=== PATIENT | male | born 1970 | race Caucasian/White ===

== ENCOUNTER 2018-11-25 08:08 | Outpatient (RCR) | payer MEDICARE, MEDICAID, SELFPAY ==
[2018-11-25] MEDS: Normal Saline Flush 10 ML SYR IVP (08:10)
[2018-11-25 08:55] LABS: Abs Immature Grans 0.03 k/cumm (0.0-0.09); Absolute Basophil Count 0.03 k/cumm (0.0-0.2); Absolute Eosinophil Count 0.27 k/cumm (0.0-0.7); Absolute Lymphocyte Count 1.05 k/cumm (1.2-3.4); Absolute Monocyte Count 0.49 k/cumm (0.11-0.7); Absolute Neutrophil Count 5.33 k/cumm (1.2-6.7); Basophils % 0.4; Eosinophils % 3.8; HCT 44.6 % (40.0-50.0); HGB 15.6 g/dL (13.5-17.5); Immature Grans % 0.4; Lymphocytes % 14.6; Mean Corpuscular Hemoglobin 34.4 pg (27.0-33.0); Mean Corpuscular Volume 98.5 fL (80-95); Mean Platelet Volume 9.1 fL (8.0-11.0); Monocytes % 6.8; Platelet Count 166 x1000/uL (130-400); RBC 4.53 m/cumm (4.50-6.00); RBC Distribution Width 13.1 % (11.8-14.1)
[2018-11-25 09:07] LABS: ALT 21 U/L (12-78); AST 24 U/L (15-37); Albumin 3.8 g/dL (3.4-5.0); Alkaline Phosphatase 88 U/L (46-116); Anion Gap 5.4 mmol/L (3-11); BUN 10 mg/dL (7-18); Bilirubin, Total 0.5 mg/dL (0.2-1.0); CO2 31.6 mmol/L (21.0-32.0); Calcium 8.7 mg/dL (8.5-10.1); Chloride 100 mmol/L (98-107); Glucose 104 mg/dL (70-100); LDH 253 U/L (85-227); Sodium 137 mmol/L (136-145); Total Protein 7.1 g/dL (6.4-8.2)
[2018-11-26 11:55] LABS: IgA 57 mg/dL (85-499); IgG 671 mg/dL (610-1616); IgM 191 mg/dL (35-242)
== END 2018-11-30 23:59 | disposition home or self-care (01) ==
LOC: INF 08:08
PROVIDERS: PCP Family Medicine; Visit Provider Internal Medicine Hematology & Oncology
DX: C88.0 Waldenstrom macroglobulinemia (principal); Z45.2 Encounter for adjustment and management of vascular access device
CPT/HCPCS: 36591; 80053; 82784; 80180; 83615; 85025

== ENCOUNTER 2019-07-21 08:54 | Outpatient (REF) | payer MEDICARE, MEDICAID, SELFPAY ==
[2019-07-21 09:15] LABS: Abs Immature Grans 0.05 k/cumm (0.0-0.09); Absolute Basophil Count 0.04 k/cumm (0.0-0.2); Absolute Eosinophil Count 0.13 k/cumm (0.0-0.7); Absolute Lymphocyte Count 1.05 k/cumm (1.2-3.4); Absolute Monocyte Count 0.56 k/cumm (0.11-0.7); Absolute Neutrophil Count 4.57 k/cumm (1.2-6.7); Basophils % 0.6; HCT 46.7 % (40.0-50.0); HGB 15.4 g/dL (13.5-17.5); Immature Grans % 0.8; Lymphocytes % 16.4; Mean Corpuscular Volume 96.9 fL (80-95); Mean Platelet Volume 8.5 fL (8.0-11.0); Monocytes % 8.8; Neutrophils % 71.4; Platelet Count 255 x1000/uL (130-400); RBC 4.82 m/cumm (4.50-6.00); RBC Distribution Width 14.7 % (11.8-14.1)
[2019-07-21 09:26] LABS: ALT 38 U/L (12-78); AST 22 U/L (15-37); Alkaline Phosphatase 100 U/L (46-116); Anion Gap 7.9 mmol/L (3-11); BUN 10 mg/dL (7-18); Bilirubin, Total 0.4 mg/dL (0.2-1.0); CO2 28.1 mmol/L (21.0-32.0); CREATININE 0.74 mg/dL (0.70-1.30); Calcium 8.9 mg/dL (8.5-10.1); Chloride 103 mmol/L (98-107); Glucose 105 mg/dL (70-100); LDH 229 U/L (85-227); Potassium 4.5 mmol/L (3.5-5.1); Sodium 139 mmol/L (136-145); Total Protein 7.5 g/dL (6.4-8.2)
== END 2019-07-21 09:14 ==
LOC: LBN 08:54
PROVIDERS: PCP Family Medicine; Visit Provider Internal Medicine Hematology & Oncology
DX: C88.0 Waldenstrom macroglobulinemia (principal)
CPT/HCPCS: 80053; 83615; 85025

== ENCOUNTER 2021-01-10 09:00 | Outpatient (RCR) | payer MEDICARE, MEDICAID, SELFPAY ==
[2021-01-10] MEDS: Normal Saline Flush 10 ML SYR IVP (09:13)
[2021-01-10 09:24] LABS: Abs Immature Grans 0.14 10^3/uL (0.0-0.06); Absolute Basophil Count 0.06 10^3/uL (0.0-0.2); Absolute Eosinophil Count 0.41 10^3/uL (0.0-0.7); Absolute Lymphocyte Count 1.07 10^3/uL (1.2-3.4); Absolute Monocyte Count 0.87 10^3/uL (0.1-0.8); Absolute Neutrophil Count 3.74 10^3/uL (1.2-6.7); Eosinophils % 6.5; HGB 15.1 g/dL (13.5-17.5); Immature Grans % 2.2; MCH 31.2 pg (27.0-33.0); MCHC 32.8 % (32.0-36.0); MPV 8.6 fL (8.0-11.0); Monocytes % 13.8; Neutrophils % 59.5; Nucleated RBC 0 %; Platelet Count 193 10^3/uL (130-400); RBC 4.84 10^6/uL (4.36-5.78); RDW 13.7 % (11.8-14.1); RDW-SD 48.3 fL; WBC 6.29 10^3/uL (4.4-10.8)
[2021-01-10 09:38] LABS: ALT 24 U/L (16-63); AST 17 U/L (15-37); Albumin 3.6 g/dL (3.4-5.0); Alkaline Phosphatase 107 U/L (46-116); Anion Gap 8.4 mmol/L (3-11); BUN 11 mg/dL (7-18); Bilirubin, Total 0.3 mg/dL (0.2-1.0); CO2 27.6 mmol/L (21.0-32.0); CREATININE 0.8 mg/dL (0.70-1.30); Calcium 8.7 mg/dL (8.5-10.1); Chloride 104 mmol/L (98-107); Glucose 89 mg/dL (74-106); LDH 224 U/L (85-227); Potassium 4.6 mmol/L (3.5-5.1); Sodium 140 mmol/L (136-145); Total Protein 7.2 g/dL (6.4-8.2)
[2021-01-11 09:24] LABS: IgA 43 mg/dL (85-499); IgG 598 mg/dL (610-1,616); IgM 276 mg/dL (35-242)
== END 2021-01-28 23:59 | disposition home or self-care (01) ==
LOC: INF 09:00
PROVIDERS: PCP Family Medicine; Visit Provider Internal Medicine Hematology & Oncology
DX: C88.0 Waldenstrom macroglobulinemia (principal); Z45.2 Encounter for adjustment and management of vascular access device
CPT/HCPCS: 36591; 80053; 82784; 83615; 85025

== ENCOUNTER 2021-02-21 11:02 | Outpatient (REF) | payer MEDICARE, MEDICAID, SELFPAY ==
--- NOTE | 2021-02-21 10:25 | PAPNONF_PTH ---
PATIENT: Artis Singer JR LOC: [facility] U#:[id number] AGE/SX: 50/M ROOM: RE02/21/[address]: MARGARET Gonzalez : 1970 BED: DIS: 02/21/2021 SPEC #: [id number] RECD: 02/22/21 13:06 STATUS: JUAN DIEGO DOWELL #: [id number] LUIS ENRIQUE: 02/21/21 10:[address]: Ronny Cordova DEPT: [facility] Cyt[facility] RECD BY: Yesica Raya ENTERED: 02/22/21 13:06 SP TYPE: JHONNY DE LA O DR: Los Guy Tissues: 1 - BODY FLUID CYTO-FINE NEEDLE ASPIRATE-[facility] Procedures: BODY FLUID CYTO-FINE NEEDLE ASPIRATE[facility] Comments: [id number]
== END 2021-02-21 11:03 | disposition home or self-care (01) ==
LOC: LBN 11:02
PROVIDERS: PCP Family Medicine; Visit Provider Physician Assistant
DX: R22.0 Localized swelling, mass and lump, head (principal); M79.89 Other specified soft tissue disorders
CPT/HCPCS: 88104

== ENCOUNTER → 2023-11-17 01:24 | Outpatient (CLI) | payer MEDICARE, MEDICAID, SELFPAY ==
--- NOTE | 2023-11-17 | DI.MRI_ITS ---
Exam(s) MR BRAIN WO/W EXAM: MR BRAIN WO/W CLINICAL HISTORY: F/U LYMPHOMA OF BRAIN,S/PXRT,COMPARE TO 08/14/23 TECHNIQUE: Multiplanar multisequence MRI of the brain was performed. CONTRAST MATERIAL: IV Contrast: 15 mL of Dotarem contrast administered. FINDINGS: VENTRICLES AND EXTRA AXIAL SPACES: Normal in size and morphology for the patient's age. HEMORRHAGE: There is a persistent focus of susceptibility artifact at the base of the right frontal l obe suggesting prior hemorrhage. CEREBRAL PARENCHYMA: Since the prior examination there has been significant decrease in the hyperinte nse signal seen on the FLAIR images in the right frontal lobe the medial aspects of the temporal lobe s and the periventricular white matter in the occipital lobes. This also shows improvement on the di ffusion-weighted images. There is also approved min seen in the insular regions bilaterally particul sakshi on the left. No new areas of hyperintense signal are seen on the FLAIR images. There is hyperi ntense signal seen around the right frontal implant device. There is also been near complete resolut ion of the parenchymal enhancement in these areas since 08/14/2023. The left 5th cranial nerve has a similar appearance. There is persistent leptomeningeal enhancement present. There is persistent sub ependymal enhancement around the temporal horns, left greater than right. It does appear improved ho wever. MIDLINE SHIFT: None. BRAINSTEM/CEREBELLUM: Normal. CALVARIUM: Normal. VISUALIZED PARANASAL SINUSES/MASTOIDS: There is mucosal thickening seen in the maxillary sinuses bila terally with fluid seen in the left maxillary sinus. [place]: Normal flow void. PITUITARY GLAND: There is a partially empty sella. OTHER FINDINGS: IMPRESSION: Overall, there has been a significant improvement the intracranial finding since the examination from 08/14/2023, as described above. DATA REPOSITORY:
[2023-11-17] MEDS: Gadoterate meglumine 20 ML SYRINGE IVP (12:31)
[2023-11-17] MEDS: Normal Saline Flush 10 ML SYR IJ (12:31)
== END ==
PROVIDERS: PCP Family Medicine; Visit Provider Internal Medicine Hematology & Oncology
DX: C88.0 Waldenstrom macroglobulinemia (principal)
CPT/HCPCS: 70553

== ENCOUNTER → 2024-01-16 01:25 | Outpatient (CLI) | payer MEDICARE, MEDICAID, SELFPAY ==
--- NOTE | 2024-01-16 | DI.MRI_ITS ---
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 CONTRAST MATERIAL: IV Contrast: 14 mL of Dotarem contrast administered. MR MR BRAIN WO/W from 11/17/2023 FINDINGS: The examination is limited due to patient motion artifact. VENTRICLES AND EXTRA AXIAL SPACES: Normal in size and morphology for the patient's age. The reservoir is again seen over the right frontal bone. HEMORRHAGE: None. CEREBRAL PARENCHYMA: No focus of restricted diffusion to suggest acute infarct. There is stable hyper intense signal seen in the white matter on the T2 weighted images. MIDLINE SHIFT: None. BRAINSTEM/CEREBELLUM: Normal. CALVARIUM: Normal. ENHANCEMENT: No new enhancing lesions are identified. There has been further decrease in the subepen dymal enhancement in the temporal horns. There is also decreased leptomeningeal enhancement in the r ight middle cranial fossa. VISUALIZED PARANASAL SINUSES/MASTOIDS: There is mucosal thickening in the visualized paranasal sinuse s with air-fluid level in the left maxillary sinus. [place]: Normal flow void. PITUITARY GLAND: There is a partially empty sella. OTHER FINDINGS: IMPRESSION: Continued decrease in the T2 hyperintense signal in the brain and the enhancement as described above. No evidence of progression of disease. DATA REPOSITORY:
[2024-01-16 10:03] LABS: Abs Immature Grans 0.05 10^3/uL (0.0-0.06); Absolute Lymphocyte Count 0.71 10^3/uL (1.2-3.4); Basophils % 0.2; HCT 42.3 % (40.0-50.0); HGB 14.3 g/dL (13.5-17.5); Immature Grans % 0.4; Lymphocytes % 5.9; MCH 32.3 pg (27.0-33.0); MCHC 33.8 % (32.0-36.0); MCV 96 fL (80-95); MPV 8.8 fL (8.0-11.0); Monocytes % 5.1; Neutrophils % 88.4; Platelet Count 142 10^3/uL (130-400); RBC 4.43 10^6/uL (4.36-5.78); RDW 11.9 % (11.8-14.1); RDW-SD 42.3 fL; WBC 12.05 10^3/uL (4.4-10.8)
[2024-01-16 10:07] LABS: Absolute Basophil Count 0.02 10^3/uL (0.0-0.2); Absolute Monocyte Count 0.61 10^3/uL (0.1-0.8); Absolute Neutrophil Count 10.65 10^3/uL (1.2-6.7)
[2024-01-16 10:18] LABS: ALT 16 U/L (16-63); AST 20 U/L (15-37); Albumin 3.6 g/dL (3.4-5.0); Alkaline Phosphatase 86 U/L (46-116); Anion Gap 11.2 mmol/L (3-11); BUN 14 mg/dL (7-18); Bilirubin, Total 0.4 mg/dL (0.2-1.0); CO2 26.8 mmol/L (21.0-32.0); CREATININE 1.1 mg/dL (0.70-1.30); Calcium 8.6 mg/dL (8.5-10.1); Chloride 101 mmol/L (98-107); Estimated GFR 80.27 (mL/min/1.73m2); Glucose 115 mg/dL (74-106); LDH 149 U/L (85-227); Potassium 3.5 mmol/L (3.5-5.1); Sodium 139 mmol/L (136-145); Total Protein 6.8 g/dL (6.4-8.2)
[2024-01-16] MEDS: Normal Saline Flush 10 ML SYR IVP (10:22)
[2024-01-16] MEDS: Gadoterate meglumine 20 ML SYRINGE 14 ML IVP (10:23)
[2024-01-19 10:51] LABS: IgA 17 mg/dL (85-499); IgG 281 mg/dL (610-1616); IgM 41 mg/dL (35-242)
== END ==
PROVIDERS: Nurse Practitioner Adult Health; PCP Family Medicine; Visit Provider Internal Medicine Hematology & Oncology
DX: C88.0 Waldenstrom macroglobulinemia (principal)
CPT/HCPCS: 70553; 80053; 82784; 83615; 85025

== ENCOUNTER 2024-03-17 10:15 | Outpatient (CLI) | payer MEDICARE, MEDICAID, SELFPAY ==
[2024-03-17 09:33] LABS: Abs Immature Grans 0.03 10^3/uL (0.0-0.06); Absolute Basophil Count 0.06 10^3/uL (0.0-0.2); Absolute Eosinophil Count 0.08 10^3/uL (0.0-0.7); Absolute Lymphocyte Count 1.17 10^3/uL (1.2-3.4); Absolute Monocyte Count 0.58 10^3/uL (0.1-0.8); Absolute Neutrophil Count 8.79 10^3/uL (1.2-6.7); Basophils % 0.6; Eosinophils % 0.7; HCT 47.1 % (40.0-50.0); HGB 16.2 g/dL (13.5-17.5); Immature Grans % 0.3; Lymphocytes % 10.9; MCH 33.3 pg (27.0-33.0); MCHC 34.4 % (32.0-36.0); MCV 97 fL (80-95); MPV 8.7 fL (8.0-11.0); Monocytes % 5.4; Neutrophils % 82.1; Platelet Count 191 10^3/uL (130-400); RBC 4.87 10^6/uL (4.36-5.78); RDW 12.5 % (11.8-14.1); RDW-SD 44.7 fL; WBC 10.71 10^3/uL (4.4-10.8)
[2024-03-17 09:48] LABS: ALT 30 U/L (16-63); AST 18 U/L (15-37); Albumin 4.1 g/dL (3.4-5.0); Alkaline Phosphatase 100 U/L (46-116); Anion Gap 7.9 mmol/L (3-11); BUN 14 mg/dL (7-18); Bilirubin, Total 0.5 mg/dL (0.2-1.0); CO2 31.1 mmol/L (21.0-32.0); CREATININE 0.9 mg/dL (0.70-1.30); Calcium 8.9 mg/dL (8.5-10.1); Chloride 106 mmol/L (98-107); Estimated GFR 102.12 (mL/min/1.73m2); Glucose 99 mg/dL (74-106); LDH 108 U/L (85-227); Potassium 4.1 mmol/L (3.5-5.1); Sodium 145 mmol/L (136-145); Total Protein 6.9 g/dL (6.4-8.2)
[2024-03-18 09:06] LABS: IgA 18 mg/dL (85-499); IgG 293 mg/dL (610-1616); IgM 37 mg/dL (35-242)
== END 2024-03-17 10:16 | disposition home or self-care (01) ==
LOC: LBO 10:15
PROVIDERS: PCP Family Medicine; Visit Provider Nurse Practitioner Adult Health
DX: C88.0 Waldenstrom macroglobulinemia (principal)
CPT/HCPCS: 36415; 80053; 82784; 83615; 85025

== ENCOUNTER 2024-08-25 01:55 | Outpatient (CLI) | payer MEDICARE, MEDICAID, SELFPAY ==
[2024-08-25 09:52] LABS: Abs Immature Grans 0.02 10^3/uL (0.0-0.06); Absolute Basophil Count 0.08 10^3/uL (0.0-0.2); Absolute Eosinophil Count 0.16 10^3/uL (0.0-0.7); Absolute Lymphocyte Count 1.42 10^3/uL (1.2-3.4); Absolute Monocyte Count 0.52 10^3/uL (0.1-0.8); Absolute Neutrophil Count 5.14 10^3/uL (1.2-6.7); Basophils % 1.1 %; Eosinophils % 2.2 %; HCT 46.8 % (40.0-50.0); HGB 15.8 g/dL (13.5-17.5); Immature Grans % 0.3 %; Lymphocytes % 19.3 %; MCH 32.1 pg (27.0-33.0); MCHC 33.8 % (32.0-36.0); MCV 95 fL (80-95); MPV 9.2 fL (8.0-11.0); Monocytes % 7.1 %; Platelet Count 178 10^3/uL (130-400); RBC 4.92 10^6/uL (4.36-5.78); RDW 13.2 % (11.8-14.1); RDW-SD 46.2 fL; WBC 7.34 10^3/uL (4.4-10.8)
[2024-08-25] MEDS: Gadoterate meglumine 20 ML VIAL 14 ML IVP (10:09)
[2024-08-25 10:12] LABS: ALT 21 U/L (16-63); AST 15 U/L (15-37); Albumin 3.8 g/dL (3.4-5.0); Alkaline Phosphatase 97 U/L (46-116); Anion Gap 5.2 mmol/L (3-11); BUN 15 mg/dL (7-18); Bilirubin, Total 0.35 mg/dL (0.2-1.0); CO2 32.8 mmol/L (21.0-32.0); Calcium 8.9 mg/dL (8.5-10.1); Chloride 101 mmol/L (98-107); Glucose 90 mg/dL (74-106); LDH 113 U/L (85-227); Sodium 139 mmol/L (136-145); Total Protein 6.7 g/dL (6.4-8.2)
--- NOTE | 2024-08-25 10:25 | DI.MRI_ITS ---
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 CONTRAST MATERIAL: IV Contrast: 14 mL of Dotarem contrast administered. MR MR BRAIN WO/W from 11/17/2023 MR MR BRAIN WO/W from 01/16/2024 FINDINGS: VENTRICLES AND EXTRA AXIAL SPACES: Normal in size and morphology for the patient's age. HEMORRHAGE: None. CEREBRAL PARENCHYMA: No focus of restricted diffusion to suggest acute infarct. No new hyperintense s ignal is seen in the brain parenchyma. There is stable hyperintense signal seen in the right frontal lobe around the shunt tubing. MIDLINE SHIFT: None. BRAINSTEM/CEREBELLUM: Normal. CALVARIUM: Normal. ENHANCEMENT: No new enhancing lesions are seen. VISUALIZED PARANASAL SINUSES/MASTOIDS: There is moderate mucosal thickening in the maxillary sinuses. No air-fluid levels are seen. There is mild mucosal thickening seen in the ethmoid air cells and s phenoid sinuses. There is a small amount of fluid seen in right mastoid air cells. [place]: Normal flow void. PITUITARY GLAND: Note is made of a partially empty sella. OTHER FINDINGS: There is again seen a port and tubing entering via the right scalp. IMPRESSION: No significant change in appearance of the brain since 01/16/2024. No evidence of progression of disea se. DATA REPOSITORY:
[2024-08-26 08:44] LABS: IgA 22 mg/dL (85-499); IgG 280 mg/dL (610-1616); IgM 46 mg/dL (35-242)
== END 2024-08-25 02:15 ==
LOC: DI 01:56
PROVIDERS: PCP Family Medicine; Visit Provider Internal Medicine Hematology & Oncology
DX: C88.0 Waldenstrom macroglobulinemia (principal)
CPT/HCPCS: 70553; 80053; 82784; 83615; 85025

== ENCOUNTER 2025-01-10 02:06 | Outpatient (CLI) | payer MEDICARE, MEDICAID, SELFPAY ==
--- NOTE | 2025-01-10 | DI.MRI_ITS ---
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 Both noninfused and contrast i nfused sequences were performed. IV Contrast injected was 14 cc Dotarem. COMPARISON: MR MR BRAIN WO/W from 08/25/2024 FINDINGS: SHUNT: Is again noted is a right-sided shunt which enters via the right frontal region and distal tip is in the right lateral sinus adjacent to the septum pellucidum, unchanged. Ventricles continue to exhibit normal size. There is no new periventricular signal abnormality. The amount of signal abnor malities surrounding the shunt in the anterior forceps white matter is unchanged. There is no new wh ite matter signal abnormality on either side. No new abnormal enhancement, intra or extra-axial. Th ere are no ring enhancing lesions in the brain and there is no new abnormal meningeal enhancement. CEREBRAL PARENCHYMA: No evidence of intracranial hemorrhage, mass effect nor shift of midline structu re. No extraaxial fluid collections. Ventricles are not enlarged nor shifted. There is no significant focal signal abnormality in the cerebellar hemispheres nor within the pillo, m idbrain, and thalami. There is no new abnormal signal abnormality in the periventricular white matter. DWI: No areas of restricted diffusion to suggest acute ischemic event. SWI: Stable findings on SWI with no evidence of new microhemorrhages. PITUITARY GLAND: No mass nor parasellar abnormality. No obvious abnormality in the cavernous sinuses. FLOW VOIDS: The expected flow void are noted. No evidence of obvious aneurysm nor obvious vascular ma lformation. PARANASAL SINUSES: There is circumferential mucosal thickening both maxillary sinuses again noted. N o associated fluid levels. Mild mucosal thickening is also seen in the ethmoidal air cells and the f rontal sinuses are clear. Sphenoid sinus right-side exhibits some mucosal thickening, more so than p revious. There are no mastoid effusions evident. ORBITS: No obvious abnormal findings. IMPRESSION: 1. Stable unchanged appearance of the brain when compared to prior MRI scan of 08/25/2024. also stabl e position and appearance of the right frontal shunt. No hydrocephalus. 2. No abnormal enhancing intracranial findings. There are no ring enhancing lesions in the brain and there is no abnormal meningeal enhancement. 3. Prominent circumferential thickening of the mucosa in both maxillary sinuses is again noted but n ot associated with fluid levels. DATA REPOSITORY:
[2025-01-10] MEDS: Normal Saline Flush 10 ML SYR IVP (14:36)
[2025-01-10] MEDS: Gadoterate meglumine 20 ML SYRINGE 14 ML IVP (14:37)
== END 2025-01-10 02:26 ==
LOC: DI 02:07
PROVIDERS: PCP Family Medicine; Visit Provider Internal Medicine Hematology & Oncology
DX: C88.00 Waldenstrom macroglobulinemia not having achieved remission (principal)
CPT/HCPCS: 70553

== ENCOUNTER 2025-04-04 01:46 | Outpatient (CLI) | payer MEDICARE, MEDICAID, SELFPAY ==
--- NOTE | 2025-04-04 | DI.CT_ITS ---
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 TECHNIQUE: Imaging Protocol: Axial computed tomography images with coronal and sagittal reformatted images were created and reviewed. IV contrast: 100 mL Omnipaque 350 COMPARISON: No exams were available for comparison FINDINGS: MAXILLARY SINUSES: There is circumferential mucosal thickening in the right maxillary sinus. There is almost complete o pacification of the left maxillary sinus. There is periosteal thickening in the lateral mistry of bot h maxillary sinuses. There does appear to be some bone dehiscence in the medial mistry of both maxillary sinuses at the lev el the ostiomeatal units. Cannot exclude possibility of post surgical defects accounting for this fi nding. OSTIOMEATAL UNITS: Defined. See above. ETHMOIDAL AIR CELLS: Mild mucosal thickening but predominately well aerated. SPHENOID SINUSES: Mild mucosal thickening. No fluid levels. FRONTAL SINUSES: Well aerated. No mucosal thickening nor fluid levels. NASAL SEPTUM AND TURBINATES:Nasal septum is mildly deviated to the right. There is a prominent right -sided nasal septal spur. There is aeration of the left middle turbinate. OSSEOUS: Appearance of the bones of the face and skull base are most probably related to the underlyi ng hematologic disease. Incidentally noted is a right frontal shunt with distal tip in right lateral ventricle adjacent to th e septum pellucidum. The ventricles are not enlarged or shifted. IMPRESSION: 1. Mucosal thickening in the maxillary sinuses as above with some dehiscence of the medial mistry of both maxillary sinuses versus prior surgical defects. Correlation with past endoscopic surgery histo ry recommended. 2. Large right-sided nasal septal spur noted. 3. Mottled pattern of the bones of the skull which is probably secondary to the underlying hematolog ic disease. 4. Other findings as above. RADIATION DOSE DELIVERED: 109.93mGy.cm Total DLP DATA REPOSITORY: All CT scans at this facility are submitted to the National Radiology Data Registry (NRDR) Dose Index Registry (DIR) with the [employer] (A[employer]). RADIATION OPTIMIZATION: All CT scans at this facility use at least one of these dose optimization te chniques: automated exposure control; mA and/or kV adjustment per patient size (includes targeted exa ms where dose is matched to clinical indication); or iterative reconstruction.
[2025-04-04 12:35] LABS: Abs Immature Grans 0.05 10^3/uL (0.0-0.06); Absolute Basophil Count 0.11 10^3/uL (0.0-0.2); Absolute Eosinophil Count 0.12 10^3/uL (0.0-0.7); Absolute Lymphocyte Count 1.98 10^3/uL (1.2-3.4); Absolute Monocyte Count 0.88 10^3/uL (0.1-0.8); Absolute Neutrophil Count 10.21 10^3/uL (1.2-6.7); Basophils % 0.8 %; Eosinophils % 0.9 %; HCT 45.3 % (40.0-50.0); HGB 14.8 g/dL (13.5-17.5); Immature Grans % 0.4 %; Lymphocytes % 14.8 %; MCH 31.7 pg (27.0-33.0); MCHC 32.7 % (32.0-36.0); MCV 97 fL (80-95); MPV 8.7 fL (8.0-11.0); Monocytes % 6.6 %; Neutrophils % 76.5 %; Platelet Count 286 10^3/uL (130-400); RBC 4.67 10^6/uL (4.36-5.78); RDW 12.3 % (11.8-14.1); RDW-SD 44.2 fL; WBC 13.35 10^3/uL (4.4-10.8)
[2025-04-04 12:57] LABS: ALT 17 U/L (16-63); AST 15 U/L (15-37); Albumin 3.6 g/dL (3.4-5.0); Alkaline Phosphatase 99 U/L (46-116); BUN 21 mg/dL (7-18); Bilirubin, Total 0.3 mg/dL (0.2-1.0); Calcium 9.3 mg/dL (8.5-10.1); Chloride 102 mmol/L (98-107); Estimated GFR 89.44 (mL/min/1.73m2); Glucose 99 mg/dL (74-106); LDH 134 U/L (85-227); Potassium 4.2 mmol/L (3.5-5.1); Sodium 139 mmol/L (136-145); Total Protein 7.2 g/dL (6.4-8.2)
[2025-04-04] MEDS: Normal Saline - Diluent 50 ML VIAL IJ (13:12)
[2025-04-04] MEDS: Omnipaque 350 MG/ML 100 ML BTL IJ (13:14)
[2025-04-05 14:32] LABS: Albumin 60.7 % (55.8-66.1); Albumin g/dL 3.9 g/dL (3.6-5.2); Total Protein 6.5 g/dL (6.3-8.2)
== END 2025-04-04 02:06 ==
LOC: DI 01:47
PROVIDERS: PCP Family Medicine; Visit Provider Internal Medicine Hematology & Oncology
DX: C83.08 Small cell B-cell lymphoma, lymph nodes of multiple sites (principal); R93.89 Abnormal findings on diagnostic imaging of other specified body structures
CPT/HCPCS: 80053; 70487; 83615; 84165; 85025; J3490

== ENCOUNTER 2025-04-27 08:59 | Outpatient (REF) | payer MEDICARE, MEDICAID, SELFPAY ==
[2025-04-27 09:21] LABS: CREATININE 0.7 mg/dL (0.70-1.30)
== END 2025-04-27 09:00 | disposition home or self-care (01) ==
LOC: LBN 08:59
PROVIDERS: PCP Family Medicine; Visit Provider Internal Medicine Hematology & Oncology
DX: C88.00 Waldenstrom macroglobulinemia not having achieved remission; D80.1 Nonfamilial hypogammaglobulinemia
CPT/HCPCS: 82565

== ENCOUNTER 2025-10-05 09:51 | Outpatient (REF) | payer MEDICARE, MEDICAID, SELFPAY | END 2025-10-05 09:52 | disposition home or self-care (01) | LOC: LBN 09:51 | PROVIDERS: PCP Family Medicine; Visit Provider Internal Medicine Hematology & Oncology | DX: C83.00 Small cell B-cell lymphoma, unspecified site (principal); D80.1 Nonfamilial hypogammaglobulinemia | CPT/HCPCS: 82784; 82565 ==